=== PATIENT | male | born 1995 | race American Indian/Alaskan Native ===

== ENCOUNTER 2017-09-15 08:36 | Emergency (ER) | payer OTHER, MEDICAID, SELFPAY ==
[2017-09-15 08:44] VITALS: BP 141/62; PULSE 80; RESP 20; TEMP 36.4; O2SAT 96; BMI 52.0
--- NOTE | 2017-09-15 08:54 | PC.NURSE ---
Swelling stated to l foot. States took own lasix at home, as that what was given last time, but this did not help. Pain with palpation
--- NOTE | 2017-09-15 09:23 | DI.US.S_ITS ---
PROCEDURE: US PERIPH VENOUS LOW EXTREM LT INDICATIONS: EDEMA TECHNIQUE: Real-time imaging, as well as color and pulse Doppler interrogation, were performed of the lower extremity deep veins from the inguinal ligament to the popliteal fossa. COMPARISON: None. FINDINGS: The deep veins are normally compressible, and free of intraluminal thrombus. Color and pulse Doppler demonstrate normal phasic intraluminal flow. There is normal augmentation response to distal compression maneuver. IMPRESSION: No DVT in the left lower extremity. Dictated by: Jorge Jaramillo M.D. on 09/15/2017 at 9:52 Approved by: Jorge Jaramillo M.D. on 09/15/2017 at 9:52
--- NOTE | 2017-09-15 09:23 | ED.LOWEXIN ---
HPI - Extremity Injury (Lower) General Chief Complaint: Extremity Injury, Lower Stated Complaint: SWOLLEN LEFT FOOT Time Seen by Provider: 09/15/17 08:53 Source: patient Mode of arrival: ambulatory Limitations: no limitations History of Present Illness HPI Narrative: Patient states he started having pain and swelling in his left foot. It reaches somewhat of today his left ankle, as well patient states. Patient denies any direct trauma recently. He states he has been able to ambulate on the foot that hurts. Patient has no other injuries or complaints. He does know and old injury to the area some years ago. complaint: other Injury: Left: foot Place: home and street/outdoors Severity: moderate Severity scale (1-10): 5 Relieving factors: nothing Exacerbating factors: nothing Context: fall Other symptoms: none Related Data Previous Rx's Medication Instructions Recorded furosemide [Lasix] 20 mg PO QAM #7 tab 02/24/17 Allergies Allergy/AdvReac Type Severity Reaction Status Date / Time naproxen Allergy Unknown GETS Verified 09/15/17 08:43 ITCHY AND SWEATS Review of Systems Review of Systems All systems reviewed & are unremarkable except as noted in HPI and below Constitutional Denies chills, Denies fever(s), Denies lethargy and Denies weakness Eyes Denies change in vision, Denies eye discharge, Denies irritation and Denies loss of vision ENT Ears, Nose, Mouth, and Throat: Denies change in voice, Denies neck pain and Denies sore throat Cardiovascular Denies chest pain, Denies irregular heart rhythm, Denies lightheadedness, Denies palpitations, Denies dyspnea, Denies dyspnea on exertion and Denies orthopnea Respiratory Denies cough, Denies dyspnea, Denies dyspnea on exertion and Denies wheezing Gastrointestinal Gastrointestinal: Denies abdominal pain, Denies change in bowel habits, Denies diarrhea, Denies nausea and Denies vomiting Genitourinary Denies hematuria, Denies flank pain, Denies urinary incontinence and Denies urinary urgency Musculoskeletal Denies neck pain Integumentary/Breasts Denies pruritus, Denies erythema, Denies rash and Denies wounds Neurologic Denies confusion, Denies loss of vision and Denies weakness Psychiatric Denies anxiety, Denies confusion, Denies depression, Denies homicidal ideation and Denies suicidal ideation Endocrine Denies palpitations Hematologic/Lymphatic Denies easy bruising Allergic/Immunologic Denies wheezing PFSH Social History Smoking Status: Current every day smoker Exam Initial Vital Signs Initial Vital Signs: Vital Signs Temperature 97.5 F L 09/15/17 08:44 Pulse Rate 80 09/15/17 08:44 Respiratory Rate 20 09/15/17 08:44 Blood Pressure 141/62 H 09/15/17 08:44 Pulse Oximetry 96 09/15/17 08:44 Const General: cooperative and well developed Nutritional Appearance: well nourished Orientation: alert, awake, oriented x3 and not confused [facility] Head: normocephalic and atraumatic Nose: external nose normal and No nasal discharge Face and sinus: sinuses nontender, face symmetric, no sinus tenderness and No dry mucous membranes Mouth: oral mucosae normal and moist mucous membranes Teeth and gingiva: dentition normal Throat: tonsils normal and uvula midline Eyes General: appearance normal, both eyes and all related structures Eyelids: eyelids normal Conjunctivae: conjunctivae normal Sclera: sclerae normal Pupils: PERRL EOM: EOM intact bilaterally Neck Neck: normal visual inspection, trachea midline, No lymphadenopathy, No midline deformity and No JVD Lymphatic: No lymphedema Chest Chest: normal inspection of the chest Resp Effort & Inspection: normal respiratory effort, able to speak in complete sentences, no respiratory distress and no use of accessory muscles Auscultation: clear to auscultation bilaterally, no rales, no rhonchi and no wheezes Cardio Rate: regular rate Rhythm: regular rhythm Heart Sounds: no click, no gallops, no murmurs and no rubs Pulses: normal peripheral pulses GI Inspection: non-distended Palpation: soft, no hepatosplenomegaly, No guarding, No pulsatile mass and No tender Auscultation: normal bowel sounds Back/Spine/Pelvis Back: No CVA tenderness Cervical Spine: cervical ROM normal and No pain with cervical ROM Thoracic/Lumbar Spine: thoracic and lumbar spine normal to inspection Skin General: no rashes or lesions noted, No jaundice and No petechiae Neuro General: alert, oriented x3, gait normal and no focal motor deficits Speech: speech normal Extrem General: full ROM, no pedal edema, no calf tenderness and No edema Left lower extremity: ankle (mild tenderness L distal fibula) and foot (Mild tenderness over posterolateral foot. No deformity.) Psych Appearance: well kempt Mental Status: mental status grossly normal Attitude: cooperative Thought Content: normal and suicidality Judgment: judgment good Course Hospital Course: Patient was worked up with x-ray of the left ankle, which showed what appeared to be an old fracture with incomplete healing. This is consistent with the patient's statement of prior injury to the area. I did discuss the patient that this appears to be an old fracture; however, if it continues to bother him he should follow up with Orthopedics. We have also discussed that his significant obesity is likely a factor in the ongoing pain in the area, as well. Additional Information: The patient was also worked up with an ultrasound to look for DVT, and this is negative. Orders Ordered: Discontinued Medications Ibuprofen (Advil) 800 mg PO NOW ONE Stop: 09/15/17 09:27 Last Admin: 09/15/17 09:31 Dose: 800 mg Vital Signs - 8 hr 09/15/17 08:44 Temperature 97.5 F L Pulse Rate 80 Respiratory Rate 20 Blood Pressure 141/62 H Pulse Oximetry 96 MDM - Extremity Injury (Lower) Differential Diagnosis Likely ankle sprain and strain, ankle fracture and other Medical Records Attestation: I reviewed the patient's medical records. Lab Data Attestation: I reviewed the patient's lab results. Imaging Data xray: Attestation: I personally reviewed and interpreted this imaging study as follows: Radiologist's impression: [address] [address] XRay Report Signed Patient: Will Sharma TMR#: [id number] : 1995Acct:[id number] Age/Sex: 22 / MDate of Service: 09/15/17 Loc: ED Accession Number: [id number] Procedure: XR ankle LT min 3V Ordering Provider: Mariaa Gomes MD PROCEDURE: XR ANKLE LT MIN 3V INDICATIONS: pain/swelling TECHNIQUE: 3 views of the ankle were acquired. COMPARISON: None. FINDINGS: Bones: There is a vertical lucency in talus. A subtle lucency is noted in the lateral aspect of the tibia. No dislocations. Ankle mortise is normally aligned. No suspicious bony lesions. Soft tissues: No tibiotalar joint effusion. Achilles tendon appears normal. There is soft tissue swelling over the medial and lateral malleolus. IMPRESSION: 1. Vertical lucency in talus could represent a nondisplaced fracture if there is history of trauma. 2. Subtle lucency in the lateral aspect of the tibia may be incompletely fused epiphyseal plate, but nondisplaced fracture cannot be excluded. 3 Soft tissue swelling over lateral malleolus. Discharge Plan Departure Patient Disposition: Home Clinical Impression: Ankle pain, left Discharge Date/Time: 09/15/17 10:47 Interventions: ED Discharge Assessment Last Done: 09/15/17 10:46 Instructions: DI for Ankle Pain Activity Restrictions/Additional Instructions: Your x-ray shows a small area in your bone where it appears to have had a break, most likely in the past. This is probably related to old injury. However, since it keeps flaring up, you should follow-up with engineering documentation specialist to determine whether further options are available for treatment. You may take ibuprofen and Tylenol at home as needed. You may use ice as well, to help with the swelling. Prescriptions: No Action furosemide [Lasix] 20 MG tablet 20 mg PO QAM Qty: 7 RF: 0 Referrals: [facility] [Provider Group] (Follow-up for your healed fracture of the ankle.)
[2017-09-15] MEDS: IBUPROFEN 400 MG TABLET 800 MG PO (09:31)
--- NOTE | 2017-09-15 09:47 | PC.NURSE ---
XR and US done. Meds PO. to re eval
[2017-09-15 10:46] VITALS: BP 152/78; PULSE 68; RESP 20; O2SAT 100
--- NOTE | 2017-09-30 03:26 | ED_ITS ---
HPI - Extremity Injury (Lower) General Chief Complaint: Extremity Injury, Lower Stated Complaint: SWOLLEN LEFT FOOT Time Seen by Provider: 09/15/17 08:53 Source: patient Mode of arrival: ambulatory Limitations: no limitations History of Present Illness HPI Narrative: Patient states he started having pain and swelling in his left foot. It reaches somewhat of today his left ankle, as well patient states. Patient denies any direct trauma recently. He states he has been able to ambulate on the foot that hurts. Patient has no other injuries or complaints. He does know and old injury to the area some years ago. complaint: other Injury: Left: foot Place: home and street/outdoors Severity: moderate Severity scale (1-10): 5 Relieving factors: nothing Exacerbating factors: nothing Context: fall Other symptoms: none Related Data Previous Rx's Medication Instructions Recorded furosemide [Lasix] 20 mg PO QAM #7 tab 02/24/17 Allergies Allergy/AdvReac Type Severity Reaction Status Date / Time naproxen Allergy Unknown GETS Verified 09/15/17 08:43 ITCHY AND SWEATS Review of Systems Review of Systems All systems reviewed & are unremarkable except as noted in HPI and below Constitutional Denies chills, Denies fever(s), Denies lethargy and Denies weakness Eyes Denies change in vision, Denies eye discharge, Denies irritation and Denies loss of vision ENT Ears, Nose, Mouth, and Throat: Denies change in voice, Denies neck pain and Denies sore throat Cardiovascular Denies chest pain, Denies irregular heart rhythm, Denies lightheadedness, Denies palpitations, Denies dyspnea, Denies dyspnea on exertion and Denies orthopnea Respiratory Denies cough, Denies dyspnea, Denies dyspnea on exertion and Denies wheezing Gastrointestinal Gastrointestinal: Denies abdominal pain, Denies change in bowel habits, Denies diarrhea, Denies nausea and Denies vomiting Genitourinary Denies hematuria, Denies flank pain, Denies urinary incontinence and Denies urinary urgency Musculoskeletal Denies neck pain Integumentary/Breasts Denies pruritus, Denies erythema, Denies rash and Denies wounds Neurologic Denies confusion, Denies loss of vision and Denies weakness Psychiatric Denies anxiety, Denies confusion, Denies depression, Denies homicidal ideation and Denies suicidal ideation Endocrine Denies palpitations Hematologic/Lymphatic Denies easy bruising Allergic/Immunologic Denies wheezing PFSH Social History Smoking Status: Current every day smoker Exam Initial Vital Signs Initial Vital Signs: Vital Signs Temperature 97.5 F L 09/15/17 08:44 Pulse Rate 80 09/15/17 08:44 Respiratory Rate 20 09/15/17 08:44 Blood Pressure 141/62 H 09/15/17 08:44 Pulse Oximetry 96 09/15/17 08:44 Const General: cooperative and well developed Nutritional Appearance: well nourished Orientation: alert, awake, oriented x3 and not confused [facility] Head: normocephalic and atraumatic Nose: external nose normal and No nasal discharge Face and sinus: sinuses nontender, face symmetric, no sinus tenderness and No dry mucous membranes Mouth: oral mucosae normal and moist mucous membranes Teeth and gingiva: dentition normal Throat: tonsils normal and uvula midline Eyes General: appearance normal, both eyes and all related structures Eyelids: eyelids normal Conjunctivae: conjunctivae normal Sclera: sclerae normal Pupils: PERRL EOM: EOM intact bilaterally Neck Neck: normal visual inspection, trachea midline, No lymphadenopathy, No midline deformity and No JVD Lymphatic: No lymphedema Chest Chest: normal inspection of the chest Resp Effort & Inspection: normal respiratory effort, able to speak in complete sentences, no respiratory distress and no use of accessory muscles Auscultation: clear to auscultation bilaterally, no rales, no rhonchi and no wheezes Cardio Rate: regular rate Rhythm: regular rhythm Heart Sounds: no click, no gallops, no murmurs and no rubs Pulses: normal peripheral pulses GI Inspection: non-distended Palpation: soft, no hepatosplenomegaly, No guarding, No pulsatile mass and No tender Auscultation: normal bowel sounds Back/Spine/Pelvis Back: No CVA tenderness Cervical Spine: cervical ROM normal and No pain with cervical ROM Thoracic/Lumbar Spine: thoracic and lumbar spine normal to inspection Skin General: no rashes or lesions noted, No jaundice and No petechiae Neuro General: alert, oriented x3, gait normal and no focal motor deficits Speech: speech normal Extrem General: full ROM, no pedal edema, no calf tenderness and No edema Left lower extremity: ankle (mild tenderness L distal fibula) and foot (Mild tenderness over posterolateral foot. No deformity.) Psych Appearance: well kempt Mental Status: mental status grossly normal Attitude: cooperative Thought Content: normal and suicidality Judgment: judgment good Course Hospital Course: Patient was worked up with x-ray of the left ankle, which showed what appeared to be an old fracture with incomplete healing. This is consistent with the patient's statement of prior injury to the area. I did discuss the patient that this appears to be an old fracture; however, if it continues to bother him he should follow up with Orthopedics. We have also discussed that his significant obesity is likely a factor in the ongoing pain in the area, as well. Additional Information: The patient was also worked up with an ultrasound to look for DVT, and this is negative. Orders Ordered: Discontinued Medications Ibuprofen (Advil) 800 mg PO NOW ONE Stop: 09/15/17 09:27 Last Admin: 09/15/17 09:31 Dose: 800 mg Vital Signs - 8 hr 09/15/17 08:44 Temperature 97.5 F L Pulse Rate 80 Respiratory Rate 20 Blood Pressure 141/62 H Pulse Oximetry 96 MDM - Extremity Injury (Lower) Differential Diagnosis Likely ankle sprain and strain, ankle fracture and other Medical Records Attestation: I reviewed the patient's medical records. Lab Data Attestation: I reviewed the patient's lab results. Imaging Data xray: Attestation: I personally reviewed and interpreted this imaging study as follows: Radiologist's impression: [address] [address] XRay Report Signed Patient: Will Sharma TMR#: [id number] : 1995Acct:[id number] Age/Sex: 22 / MDate of Service: 09/15/17 Loc: ED Accession Number: [id number] Procedure: XR ankle LT min 3V Ordering Provider: Mariaa Gomes MD PROCEDURE: XR ANKLE LT MIN 3V INDICATIONS: pain/swelling TECHNIQUE: 3 views of the ankle were acquired. COMPARISON: None. FINDINGS: Bones: There is a vertical lucency in talus. A subtle lucency is noted in the lateral aspect of the tibia. No dislocations. Ankle mortise is normally aligned. No suspicious bony lesions. Soft tissues: No tibiotalar joint effusion. Achilles tendon appears normal. There is soft tissue swelling over the medial and lateral malleolus. IMPRESSION: 1. Vertical lucency in talus could represent a nondisplaced fracture if there is history of trauma. 2. Subtle lucency in the lateral aspect of the tibia may be incompletely fused epiphyseal plate, but nondisplaced fracture cannot be excluded. 3 Soft tissue swelling over lateral malleolus. Discharge Plan Departure Patient Disposition: Home Clinical Impression: Ankle pain, left Discharge Date/Time: 09/15/17 10:47 Interventions: ED Discharge Assessment Last Done: 09/15/17 10:46 Instructions: DI for Ankle Pain Activity Restrictions/Additional Instructions: Your x-ray shows a small area in your bone where it appears to have had a break , most likely in the past. This is probably related to old injury. However, since it keeps flaring up, you should follow-up with literacy specialist to determine whether further options are available for treatment. You may take ibuprofen and Tylenol at home as needed. You may use ice as well, to help with the swelling. Prescriptions: No Action furosemide [Lasix] 20 MG tablet 20 mg PO QAM Qty: 7 RF: 0 Referrals: [facility] [Provider Group] (Follow-up for your healed fracture of the ankle.)
== END 2017-09-15 10:47 | disposition home or self-care (01) ==
PROVIDERS: Emergency Provider Emergency Medicine
DX: M25.572 Pain in left ankle and joints of left foot (principal)
CPT/HCPCS: 73610; 93971; 99282; 99284

== ENCOUNTER 2017-09-22 18:37 | Emergency (ER) | payer OTHER, MEDICAID, SELFPAY ==
[2017-09-22 19:35] VITALS: BP 150/83; PULSE 82; RESP 20; TEMP 36.9; O2SAT 97
--- NOTE | 2017-09-22 19:35 | ED_ITS ---
HPI - Extremity Problem <Brandie Walker PA-C - Last Filed: 09/22/17 21:48> General Chief complaint: Extremity Injury, Lower Stated complaint: LEFT FOOT ON GOING PAIN Time Seen by Provider: 09/22/17 19:32 Source: patient and old records reviewed Mode of arrival: ambulatory Limitations: no limitations History of Present Illness HPI Narrative: This 22-year-old male returns to the ED with complaints of left foot and ankle area pain today. He was seen here 8 days ago due to pain and swelling. X-ray and ultrasound were done, no fracture or clot found. He states that after this, he actually had a fall onto that foot and ankle and was seen at another local ED. He states that he saw orthopedics and initially was told he had a fracture on x-ray but repeat x-ray was normal. He states that he saw orthopedics yesterday and not clear whether there was a fracture or gout present as he does have a history of gout. Blood work was done but he was not called with these results. He states that he was told to take ibuprofen and Tylenol for pain but that these are not helping. He denies any chest pain, dyspnea, or other complaints. He states that he has chronic intermittent edema in that leg since remote injury. Related Data Previous Rx's Medication Instructions Recorded furosemide [Lasix] 20 mg PO QAM #7 tab 02/24/17 Allergies Allergy/AdvReac Type Severity Reaction Status Date / Time naproxen Allergy Unknown GETS Verified 09/15/17 08:43 ITCHY AND SWEATS Review of Systems <Brandie Walker PA-C - Last Filed: 09/22/17 21:48> Review of Systems All systems reviewed & are unremarkable except as noted in HPI and below Exam <Brandie Walker PA-C - Last Filed: 09/22/17 21:48> Narrative Exam Narrative: GENERAL APPEARANCE: Patient sitting comfortably, in no distress. LUNGS: Clear to auscultation bilaterally. HEART: Rate and rhythm regular without murmur, normal S1 and S2, no S3 or S4. EXTREMITIES: No cyanosis, feet are warm, moderate pitting edema on the left, slightly less on the right MUSCULOSKELETAL: Tender over the left mid and inferior calf and inferior muller as well as just proximal to the ankle anteriorly. He has reduced a ROM of the left ankle secondary to tenderness, able to fully flex the knee and dorsi and plantar flex the toes. Achilles is intact by palpation Initial Vital Signs Initial Vital Signs: Vital Signs Temperature 98.5 F 09/22/17 19:35 Pulse Rate 82 09/22/17 19:35 Respiratory Rate 20 09/22/17 19:35 Blood Pressure 150/83 H 09/22/17 19:35 Pulse Oximetry 97 09/22/17 19:35 <Will Alejandro DO - Last Filed: 09/22/17 23:08> Initial Vital Signs Initial Vital Signs: Vital Signs Temperature 98.5 F 09/22/17 19:35 Pulse Rate 82 09/22/17 19:35 Respiratory Rate 20 09/22/17 19:35 Blood Pressure 150/83 H 09/22/17 19:35 Pulse Oximetry 97 09/22/17 19:35 Course <Brandie Walker PA-C - Last Filed: 09/22/17 21:48> Additional Information: I reviewed available radiology studies, workup done for DVT. Patient has had 3 x-rays and no fracture shown, but apparently when he saw orthopedics there was concern for occult fracture versus gout. He did not receive final word or lab results on this. Advised that he should continue current treatment, but try stopping ibuprofen and will try a dose of prednisone tonight. He will then get in touch with Orthopedics tomorrow to let them know progress and find out about lab results and next steps for workup. Patient's lab results were received just prior to discharge and he had an elevated uric acid with a level of 11.3. Reviewed this with him. He already felt that the prednisone was helping and will talk with podiatry tomorrow about his progress and whether to continue this. He agreed to discontinue ibuprofen tonight. Orders Ordered: Discontinued Medications Prednisone (Deltasone) 20 mg PO NOW ONE Stop: 09/22/17 20:24 Last Admin: 09/22/17 20:42 Dose: 20 mg Vital Signs - 8 hr 09/22/17 19:35 09/22/17 21:04 Temperature 98.5 F Pulse Rate 82 79 Respiratory Rate 20 21 Blood Pressure 150/83 H Blood Pressure [Left Arm] 125/85 H Pulse Oximetry 97 96 <Will Alejandro DO - Last Filed: 09/22/17 23:08> Orders Ordered: Discontinued Medications Prednisone (Deltasone) 20 mg PO NOW ONE Stop: 09/22/17 20:24 Last Admin: 09/22/17 20:42 Dose: 20 mg Vital Signs - 8 hr 09/22/17 19:35 09/22/17 21:04 Temperature 98.5 F Pulse Rate 82 79 Respiratory Rate 20 21 Blood Pressure 150/83 H Blood Pressure [Left Arm] 125/85 H Pulse Oximetry 97 96 Discharge Plan Departure Patient Disposition: Home Clinical Impression: Ankle pain, left Discharge Date/Time: 09/22/17 21:09 Interventions: ED Discharge Assessment Last Done: 09/22/17 21:09 Instructions: DI for Ankle Pain Activity Restrictions/Additional Instructions: It is not clear what the source of your current pain is. I reviewed the recent x-rays and ultrasound that you had and there was no clear fracture or blood clot , however it sounds like the foot/ankle specialist may have done or planned some additional studies to evaluate this further, or seen something else on x- rays done there. I agree that there is also possibility of atypical gout, so we have given you a dose of prednisone tonight to see if this is helpful. Please do not take additional ibuprofen tonight. Please contact Dr. Hoffman's office tomorrow morning to find out the results of your tests and further treatment plan. Let them know whether the prednisone helped you as well. Prescriptions: No Action furosemide [Lasix] 20 MG tablet 20 mg PO QAM Qty: 7 RF: 0 Referrals: Pete Kam DPM [Non-Staff] - <Will Alejandro DO - Last Filed: 09/22/17 23:08> Cosign ED Attending Suzette Attestation: I was available for consultation during this patient's emergency department encounter
[2017-09-22] MEDS: predniSONE 20 MG TABLET PO (20:42)
[2017-09-22 21:04] VITALS: BP 125/85; PULSE 79; RESP 21; O2SAT 96
== END 2017-09-22 21:09 | disposition home or self-care (01) ==
PROVIDERS: Emergency Provider Internal Medicine
DX: M79.672 Pain in left foot (principal)
CPT/HCPCS: 99282; 99283

== ENCOUNTER 2018-03-13 21:03 | Emergency (ER) | payer OTHER, MEDICAID, SELFPAY ==
[2018-03-13 21:07] VITALS: BP 149/91; PULSE 84; RESP 14; TEMP 36.4; O2SAT 97
== END 2018-03-13 22:23 | disposition left against medical advice (07) ==
DX: M54.2 Cervicalgia (principal)
CPT/HCPCS: 99281; 99282

== ENCOUNTER 2018-04-28 23:48 | Emergency (ER) | payer OTHER, MEDICAID, SELFPAY ==
[2018-04-29 00:02] VITALS: BP 156/94; PULSE 97; RESP 15; TEMP 37.1; O2SAT 96
--- NOTE | 2018-04-29 00:05 | DI.RAD.S_ITS ---
PROCEDURE: XR KNEE RT 3V INDICATIONS: Right knee pain after pop felt 2 days ago TECHNIQUE: 3 views of the knee were acquired. COMPARISON: None. FINDINGS: Bones: No fractures or dislocations. No suspicious bony lesions. Soft tissues: No joint effusion. No suspicious soft tissue calcifications. IMPRESSION: No fracture or dislocation. If clinical symptoms persist or clinical suspicion for pathology is high, a repeat examination in 7-10 days, or advanced imaging such as CT or MRI is suggested for further evaluation. No significant discrepancy with the ER preliminary interpretation. Dictated by: Jorge Jaramillo M.D. on 04/29/2018 at 9:40 Approved by: Jorge Jaramillo M.D. on 04/29/2018 at 9:44
--- NOTE | 2018-04-29 00:44 | ED.EXTPRO ---
HPI - Extremity Problem General Chief complaint: Extremity Problem,Nontraumatic Stated complaint: hurt right knee, cant move it. hurt right finger Time Seen by Provider: 04/29/18 00:44 Source: patient Mode of arrival: ambulatory Limitations: no limitations History of Present Illness HPI Narrative: Patient is here for evaluation of pain to the inside of his right knee. Patient states yesterday he was getting out of a car when he heard a pop and then started having pain in his right knee. He has never injured his knee in the past. Has not done anything for the symptoms prior to arrival. Is also here for evaluation of pain in his ring finger of his right hand. He states that he occasionally gets pain when he bends his finger that is unable to straighten it out until he strains and out with his left hand. Has a splint on this finger that he got from [employer]. Has not tried anything for symptoms prior to arrival. Related Data Previous Rx's Medication Instructions Recorded furosemide [Lasix] 20 mg PO QAM #7 tab 02/24/17 Allergies Allergy/AdvReac Type Severity Reaction Status Date / Time naproxen Allergy Unknown GETS Verified 04/29/18 00:02 ITCHY AND SWEATS Review of Systems Constitutional Denies fever(s) and Denies headache(s) ENT Ears, Nose, Mouth, and Throat: Denies headache(s) Cardiovascular Denies chest pain Gastrointestinal Gastrointestinal: Denies abdominal pain Musculoskeletal Denies tingling Comments: Right knee pain, right right finger pain Integumentary/Breasts Denies rash Neurologic Denies headache(s), Denies tingling and Denies paresthesias Hematologic/Lymphatic Denies easy bleeding and Denies easy bruising COUNT INCLUDES THE [facility] Social History Smoking Status: Current every day smoker Social History Smoking Status: Current every day smoker Exam Initial Vital Signs Initial Vital Signs: Vital Signs Temperature 98.7 F 04/29/18 00:02 Pulse Rate 97 H 04/29/18 00:02 Respiratory Rate 15 04/29/18 00:02 Blood Pressure 156/94 H 04/29/18 00:02 Pulse Oximetry 96 04/29/18 00:02 Const General: cooperative, healthy appearing, comfortable, well developed, well groomed and No acute distress Orientation: alert, awake and oriented x3 Resp Effort & Inspection: normal respiratory effort Cardio Rate: regular rate Pulses: radial pulses present on the right Skin Lesions: no lesions Rashes: no rashes Neuro General: alert, awake and oriented x3 Cognition: normal cognition Gait: normal gait Motor: muscle tone normal throughout Extrem Other: Patient with tenderness to palpation along the medial aspect of the right knee. ACL PCL MCL and LCL are all intact with functional testing. No hamstring tenderness. Patient able to flex and extend his right ring finger without problems. He does have tenderness to palpation over the MCP joint and he states this is where it feels like it ?get stuck? Psych Appearance: grossly normal and well kempt Procedures Orthopedic Splinting/Casting Injury #1: Side: right Lower Extremity Injury Location: knee Lower Extremity Immobilizer: Claudy wrap Post splinting neuro exam: intact and no change Post splinting vascular exam: no change Placed by: Nursing Course Orders Ordered: ED Orders 04/29/18 00:05 XR knee RT 3V Stat Vital Signs - 8 hr 04/29/18 00:02 Temperature 98.7 F Pulse Rate 97 H Respiratory Rate 15 Blood Pressure 156/94 H Pulse Oximetry 96 MDM - Extremity (Nontraumatic) Imaging Data X-ray right knee: Attestation: I personally reviewed and interpreted this imaging study as follows: My impression: No fractures, no dislocations MDM Narrative Medical decision making narrative: Patient is neurovascularly intact. I do suspect a meniscal injury in his right knee and a trigger finger of his right ring finger. We did discuss return precautions. He expressed understanding and agreement with plan. He will follow up with his primary doctor. Discharge Plan Departure Patient Disposition: Home Clinical Impression: Injury of knee, right Qualifiers: Encounter type: initial encounter Qualified Code(s): S89.91XA - Unspecified injury of right lower leg, initial encounter Trigger finger Qualifiers: Trigger finger location: unspecified finger Laterality: unspecified laterality Qualified Code(s): M65.30 - Trigger finger, unspecified finger Discharge Date/Time: 04/29/18 01:05 Interventions: ED Discharge Assessment Last Done: 04/29/18 01:05 Instructions: DI for Trigger Finger, DI for Knee Pain Activity Restrictions/Additional Instructions: I recommend that you use the Claudy bandage as needed for comfort. Contact your primary doctor on Tuesday for a follow-up. Return to the emergency department for any new or worsening symptoms Prescriptions: No Action furosemide [Lasix] 20 MG tablet 20 mg PO QAM Qty: 7 RF: 0
== END 2018-04-29 01:05 | disposition home or self-care (01) ==
PROVIDERS: Emergency Provider Emergency Medicine
DX: S89.91XA Unspecified injury of right lower leg, initial encounter (principal); M65.30 Trigger finger, unspecified finger
CPT/HCPCS: 73562; 99282; 99283

== ENCOUNTER 2020-01-07 12:50 | Emergency (ER) | payer OTHER, MEDICAID, SELFPAY ==
[2020-01-07 12:58] VITALS: BP 148/81; PULSE 57; RESP 18; TEMP 36.7; O2SAT 99
== END 2020-01-07 14:05 | disposition left against medical advice (07) ==
PROVIDERS: Emergency Provider Emergency Medicine; PCP Family Medicine
CPT/HCPCS: 99281

== ENCOUNTER 2020-01-14 14:33 | Emergency (ER) | payer OTHER, MEDICAID, SELFPAY ==
[2020-01-14 14:35] VITALS: BP 149/87; PULSE 86; RESP 16; TEMP 37.7; O2SAT 96; BMI 55.7
[2020-01-14 15:16] LABS: COVID19 -Nasal RAPID Negative (Negative)
--- NOTE | 2020-01-14 16:15 | DI.RAD.S_ITS ---
PROCEDURE: XR CHEST 1V INDICATIONS: flu-like symptoms TECHNIQUE: One view of the chest was acquired. COMPARISON: None. FINDINGS: Surgical changes and devices: None. Lungs and pleura: Lungs are clear. No pleural effusions or pneumothorax. Mediastinum: Mediastinal contours appear normal. Heart size is normal. Bones and chest wall: No suspicious bony lesions. Overlying soft tissues appear unremarkable. IMPRESSION: No acute cardiopulmonary disease process. Dictated by: Carmen Villa MD, PhD on 01/14/2020 at 16:26 Approved by: Carmen Villa MD, PhD on 01/14/2020 at 16:26
[2020-01-14] MEDS: ACETAMINOPHEN 325 MG TABLET 975 MG PO (16:53)
[2020-01-14] MEDS: KETOROLAC 60 MG/2 ML VIAL 30 MG IV (16:54)
[2020-01-14] MEDS: ONDANSETRON 4 MG/2 ML INJ IV (16:55)
[2020-01-14 17:17] LABS: Add Manual Diff / Slide Review NO; Basophils Absolute Auto 100 /uL (0-100); Basophils Percent Auto 0.4 % (0-2); Eosinophils Absolute Auto 0 /uL (0-450); Eosinophils Percent Auto 0.2 % (2-4); Hematocrit 44.5 % (41-53); Hemoglobin 14.8 g/dL (13.5-17.5); Lymphocytes Absolute Auto 1100 /uL (1100-4500); Lymphocytes Percent Auto 9.4 % (25-40); Mean Corpuscular HGB Conc 33.3 % (30-36); Mean Corpuscular Hemoglobin 28.4 PG (26-34); Mean Corpuscular Volume 85.3 fL (80-100); Monocytes Absolute Auto 1000 /uL (0-900); Monocytes Percent Auto 7.9 % (3-14); Neutrophils Absolute Auto 10100 /uL (1500-7000); Neutrophils Percent Auto 82.1 % (50-75); Platelet Count 202 X10^3/uL (150-400); Red Blood Cell Count 5.21 X10^6/uL (4.5-5.9); Red Cell Distribution Width 14.4 % (11.6-14.8); White Blood Cell Count 12.2 X10^3/uL (4.5-11.0)
[2020-01-14 17:22] LABS: Influenza A - CEPHEID Flu A NEGATIVE (NEGATIVE); Influenza B - CEPHEID Flu B NEGATIVE (NEGATIVE)
[2020-01-14 17:23] LABS: Alanine Aminotransferase 24 IU/L (<50); Albumin 4.3 g/dL (3.5-5.0); Albumin Globulin Ratio 1.4 (1.0-2.8); Alkaline Phosphatase 56 U/L (38-126); Aspartate Aminotransferase 20 IU/L (17-59); BUN Creatinine Ratio 15.9 (6-22); Bilirubin Total 0.9 mg/dL (0.2-1.3); Blood Urea Nitrogen 11 mg/dL (9-20); Calcium 9.1 mg/dL (8.4-10.2); Carbon Dioxide 30 mmol/L (22-32); Chloride 99 mmol/L (98-107); Estimated Glomerular Filt Rate > 60.0 mL/min (>60); Globulin 3.1 g/dL (1.7-4.1); Glucose 101 mg/dL (70-100); HEMOLYSIS < 15 (0-50); Potassium 4.2 mmol/L (3.4-5.1); Sodium 133 mmol/L (137-145); Total Protein 7.4 g/dL (6.3-8.2)
[2020-01-14 17:24] LABS: Magnesium 1.8 mg/dL (1.6-2.3)
[2020-01-14] MEDS: SODIUM CHLORIDE 0.9% 1,000 ML 1000 ML IV (17:33)
[2020-01-14 18:13] VITALS: PULSE 76; O2SAT 93
--- NOTE | 2020-01-14 18:42 | ED.FEVER ---
HPI - Fever <MINISTERIO Stern - Last Filed: 01/14/20 18:51> General Chief Complaint: Fever Stated Complaint: Cough, Fever, Sore Throat, Almost Passed Out Time Seen by Provider: 01/14/20 15:35 Source: patient Mode of arrival: Ambulatory Limitations: no limitations History of Present Illness HPI Narrative: The patient is a 24-year-old male current smoker with history of ankle pain who presents with a chief complaint of low-grade fevers, sore throat, decreased ability to eat due to sore throat, and cough. He states that his pain was so bad and he got weak that he almost passed out, but did not pass out. He complains of generalized aches and pains. No specific coronavirus exposure. Denies any nausea vomiting or diarrhea. Complains of decreased appetite related to sore throat. Has not taken anything for pain today. States he was using Aleve yesterday. Notes that he is allergic to naproxen but could do other NSAIDs. Denies any ear pain. States that his throat feels like swallowing glass. Related Data Previous Rx's Medication Instructions Recorded furosemide [Lasix] 20 mg PO QAM #7 tab 02/24/17 ketorolac 10 mg PO TID PRN #14 tab 01/14/20 ondansetron 4 mg PO Q6H PRN #14 tab 01/14/20 Allergies Allergy/AdvReac Type Severity Reaction Status Date / Time naproxen Allergy Unknown GETS Verified 04/29/18 00:02 ITCHY AND SWEATS Review of Systems <MINISTERIO Stern - Last Filed: 01/14/20 18:51> Review of Systems Narrative: GENERAL: See HPI HEENT: See HPI RESPIRATORY: See HPI CARDIOVASCULAR: Denies chest pain, palpitations, orthopnea, edema, GASTROINTESTINAL: Denies nausea, vomiting, abdominal pain, diarrhea, constipation, melena. : Denies dysuria, frequency, incontinence, hematuria, urinary retention. MUSCULOSKELETAL: denies weakness, joint pain, or bony pain SKIN: Denies rash, skin lesions, or other NEUROLOGIC: Denies weakness, headache, numbness, change in speech, confusion, seizures, incoordination. PSYCHIATRIC: No concerning psychosocial issues. 12 point review of systems is negative except for those stated above Patient History <MINISTERIO Stern - Last Filed: 12/07/20 18:51> Medical History (Updated 01/14/20 @ 18:50 by MINISTERIO Stern) Anxiety Chronic bilateral low back pain without sciatica (06/15/16) Chronic pain of both knees (06/15/16) Depression Gout attack History of frequent headaches Morbid obesity due to excess calories (06/15/16) Venous stasis Social History Smoking Status: Current every day smoker Smoking Status: Current every day smoker alcohol intake frequency: 0-2 drinks per day Substance Use Type: marijuana Exam <MINISTERIO Stern - Last Filed: 01/14/20 18:51> Narrative Exam Narrative: GENERAL: This is a well-nourished, well-developed patient, in no acute distress HEAD: Atraumatic. Normocephalic. No temporal or scalp tenderness. EYES: Pupils equal round and reactive. Extraocular motions intact. No scleral icterus. No injection or drainage. ENT: Nose without bleeding, purulent drainage or septal hematoma. Throat with erythema, but no tonsillar hypertrophy or exudate. Uvula midline. Airway patent. Bilateral TMs pearly larson. NECK: Trachea midline. No JVD or lymphadenopathy. Supple, nontender, no meningeal signs. CARDIOVASCULAR: Regular rate and rhythm RESPIRATORY: Clear to auscultation. Breath sounds equal bilaterally. No wheezes, rales, or rhonchi. No cough. No increased respiratory effort. No accessory muscle use. Speaking full sentences. GASTROINTESTINAL: Abdomen soft, non-tender, nondistended. No hepato-splenomegaly, or palpable masses. No guarding. Active bowel sounds all 4 quadrants EXTREMITIES: No clubbing, cyanosis, or edema. No joint tenderness, effusion, or edema noted. BACK: Nontender without deformity or crepitance. No flank tenderness. NEURO: AOx3. SKIN: No rash or erythema on visible skin Initial Vital Signs Initial Vital Signs: Vital Signs Temperature 99.8 F H 01/14/20 14:35 Pulse Rate 86 01/14/20 14:35 Respiratory Rate 16 01/14/20 14:35 Blood Pressure 149/87 H 01/14/20 14:35 Pulse Oximetry 96 01/14/20 14:35 <Arlene Hampton DO - Last Filed: 01/14/20 19:37> Initial Vital Signs Initial Vital Signs: Vital Signs Temperature 99.8 F H 01/14/20 14:35 Pulse Rate 86 01/14/20 14:35 Respiratory Rate 16 01/14/20 14:35 Blood Pressure 149/87 H 01/14/20 14:35 Pulse Oximetry 96 01/14/20 14:35 Scores <MINISTERIO Stern - Last Filed: 01/14/20 18:51> GCS Sergey coma scale eye opening: Spontaneous Sergey coma scale verbal response: Orientated Sergey coma scale motor response: Obey commands Sergey coma scale total score: 15 qSOFA Altered Mental Status (GCS <15): No Respiratory rate greater than/equal to 22: No Systolic blood pressure less than or equal to 100: No qSOFA Total: 0 0-1 Not High Risk 1-3 High risk Course <MINISTERIO Stern - Last Filed: 01/14/20 18:51> Orders Ordered: ED Orders 01/14/20 14:55 COVID19 Stat 01/14/20 16:15 XR chest 1V Stat 01/14/20 16:34 Influenza A & B (PCR) Stat Throat Culture Stat 01/14/20 17:06 Complete Blood Count AUTO DIFF Stat Comprehensive Metabolic Panel Stat Magnesium Stat Discontinued Medications Acetaminophen (Acetaminophen 325 Mg Tablet) 975 mg PO NOW ONE Stop: 01/14/20 16:17 Last Admin: 01/14/20 16:53 Dose: 975 mg Documented by: TANJA Sodium Chloride (Normal Saline 0.9%) 1,000 mls @ 1,000 mls/hr IV BOLUS ONE Stop: 01/14/20 17:59 Last Infusion: 01/14/20 18:55 Dose: 0 mls/hr Documented by: Admin: 01/14/20 17:33 Dose: 1,000 mls/hr Documented by: OBED Ketorolac Tromethamine (Ketorolac 60 Mg/2 Ml Vial) 30 mg IV NOW ONE Stop: 01/14/20 16:17 Last Admin: 01/14/20 16:54 Dose: 30 mg Documented by: TANJA Ondansetron HCl (Ondansetron 4 Mg/2 Ml Inj) 4 mg IV NOW ONE Stop: 01/14/20 16:17 Last Admin: 01/14/20 16:55 Dose: 4 mg Documented by: TANJA Vital Signs Vital signs: Vital Signs - 8 hr 01/14/20 14:35 01/14/20 18:13 Temperature 99.8 F H Pulse Rate 86 76 Respiratory Rate 16 Blood Pressure 149/87 H Pulse Oximetry 96 93 <Arlene Hampton DO - Last Filed: 01/14/20 19:37> Orders Ordered: ED Orders 01/14/20 14:55 COVID19 Stat 01/14/20 16:15 XR chest 1V Stat 01/14/20 16:34 Influenza A & B (PCR) Stat Throat Culture Stat 01/14/20 17:06 Complete Blood Count AUTO DIFF Stat Comprehensive Metabolic Panel Stat Magnesium Stat Discontinued Medications Acetaminophen (Acetaminophen 325 Mg Tablet) 975 mg PO NOW ONE Stop: 01/14/20 16:17 Last Admin: 01/14/20 16:53 Dose: 975 mg Documented by: TANJA Sodium Chloride (Normal Saline 0.9%) 1,000 mls @ 1,000 mls/hr IV BOLUS ONE Stop: 01/14/20 17:59 Last Infusion: 01/14/20 18:55 Dose: 0 mls/hr Documented by: Admin: 01/14/20 17:33 Dose: 1,000 mls/hr Documented by: OBED Ketorolac Tromethamine (Ketorolac 60 Mg/2 Ml Vial) 30 mg IV NOW ONE Stop: 01/14/20 16:17 Last Admin: 01/14/20 16:54 Dose: 30 mg Documented by: TANJA Ondansetron HCl (Ondansetron 4 Mg/2 Ml Inj) 4 mg IV NOW ONE Stop: 01/14/20 16:17 Last Admin: 01/14/20 16:55 Dose: 4 mg Documented by: TANJA Vital Signs Vital signs: Vital Signs - 8 hr 01/14/20 14:35 01/14/20 18:13 Temperature 99.8 F H Pulse Rate 86 76 Respiratory Rate 16 Blood Pressure 149/87 H Pulse Oximetry 96 93 MDM - Fever <MINISTERIO Stern - Last Filed: 01/14/20 18:51> Lab Data Result diagrams: 01/14/20 17:06 01/14/20 17:06 Labs: Lab Results 01/14/20 01/14/20 01/14/20 Range/Units 14:55 16:34 17:06 WBC (4.5-11.0) X10^3/uL RBC (4.5-5.9) X10^6/uL Hgb (13.5-17.5) g/dL Hct (41-53) % MCV (80-100) fL MCH (26-34) PG MCHC (30-36) % RDW (11.6-14.8) % Plt Count (150-400) X10^3/uL Neut % (Auto) (50-75) % Lymph % (Auto) (25-40) % [place] % (Auto) (3-14) % Eos % (Auto) (2-4) % Baso % (Auto) (0-2) % Neut # (Auto) (3185-8437) /uL Lymph # (Auto) (9799-0162) /uL [place] # (Auto) (0-900) /uL Eos # (Auto) (0-450) /uL Baso # (Auto) (0-100) /uL Sodium 133 L (137-145) mmol/L Potassium 4.2 (3.4-5.1) mmol/L Chloride 99 (98-107) mmol/L Carbon Dioxide 30 (22-32) mmol/L BUN 11 (9-20) mg/dL Creatinine 0.69 (0.66-1.25) mg/dL Estimated GFR > 60.0 (>60) mL/min BUN/Creatinine Ratio 15.9 (6-22) Glucose 101 H (70-100) mg/dL Calcium 9.1 (8.4-10.2) mg/dL Magnesium (1.6-2.3) mg/dL Total Bilirubin 0.9 (0.2-1.3) mg/dL AST 20 (17-59) IU/L ALT 24 (<50) IU/L Alkaline Phosphatase 56 (38-126) U/L Total Protein 7.4 (6.3-8.2) g/dL Albumin 4.3 (3.5-5.0) g/dL Globulin 3.1 (1.7-4.1) g/dL Albumin/Globulin Ratio 1.4 (1.0-2.8) COVID-19 PCR Negative (Negative) Influenza A (RT-PCR) Flu a negative (NEGATIVE) Influenza B (RT-PCR) Flu b negative (NEGATIVE) 01/14/20 01/14/20 Range/Units 17:06 17:06 WBC 12.2 H (4.5-11.0) X10^3/uL RBC 5.21 (4.5-5.9) X10^6/uL Hgb 14.8 (13.5-17.5) g/dL Hct 44.5 (41-53) % MCV 85.3 (80-100) fL MCH 28.4 (26-34) PG MCHC 33.3 (30-36) % RDW 14.4 (11.6-14.8) % Plt Count 202 (150-400) X10^3/uL Neut % (Auto) 82.1 H (50-75) % Lymph % (Auto) 9.4 L (25-40) % [place] % (Auto) 7.9 (3-14) % Eos % (Auto) 0.2 L (2-4) % Baso % (Auto) 0.4 (0-2) % Neut # (Auto) 48251 H (9346-9769) /uL Lymph # (Auto) 1100 (1911-5380) /uL [place] # (Auto) 1000 H (0-900) /uL Eos # (Auto) 0 (0-450) /uL Baso # (Auto) 100 (0-100) /uL Sodium (137-145) mmol/L Potassium (3.4-5.1) mmol/L Chloride (98-107) mmol/L Carbon Dioxide (22-32) mmol/L BUN (9-20) mg/dL Creatinine (0.66-1.25) mg/dL Estimated GFR (>60) mL/min BUN/Creatinine Ratio (6-22) Glucose (70-100) mg/dL Calcium (8.4-10.2) mg/dL Magnesium 1.8 (1.6-2.3) mg/dL Total Bilirubin (0.2-1.3) mg/dL AST (17-59) IU/L ALT (<50) IU/L Alkaline Phosphatase (38-126) U/L Total Protein (6.3-8.2) g/dL Albumin (3.5-5.0) g/dL Globulin (1.7-4.1) g/dL Albumin/Globulin Ratio (1.0-2.8) COVID-19 PCR (Negative) Influenza A (RT-PCR) (NEGATIVE) Influenza B (RT-PCR) (NEGATIVE) Point of Care Testing Rapid Strep A Negative Imaging Data Chest x-ray: Radiologist's Impression: [address] [place] [id number] ReportSigned Patient: Will Sharma TMR#: [id number]: [id number]:[id number]/Sex: 24 / MDate of Service: 01/14/20Loc: EDAccession Number: [id number] Procedure: XR chest 1V Ordering Provider: Arlene Henley-RANDELL PROCEDURE: XR CHEST 1V INDICATIONS: flu-like symptoms TECHNIQUE: One view of the chest was acquired. COMPARISON: None. FINDINGS: Surgical changes and devices: None. Lungs and pleura: Lungs are clear. No pleural effusions or pneumothorax. Mediastinum: Mediastinal contours appear normal. Heart size is normal. Bones and chest wall: No suspicious bony lesions. Overlying soft tissues appear unremarkable. IMPRESSION: No acute cardiopulmonary disease process. Dictated by: Carmen Villa MD, PhD on 01/14/2020 at 16:26 Approved by: Carmen Villa MD, PhD on 01/14/2020 at 16:26 [facility] Narrative Medical decision making narrative: The patient is a 24-year-old male who presents with a chief complaint of a cough, sore throat, low-grade fevers. She tests negative for coronavirus. I discussed with the patient that this could be test early in the disease process and that he needs to get re-evaluated if he continues to have any symptoms. He test negative for influenza. He has a negative rapid strep, throat culture is pending at this time. Chest x-ray is no acute findings. The patient feels much improved after IV fluids, acetaminophen and Toradol. Patient was able to tolerate po fluids prior to discharge. Prescriptions provided of Toradol and ondansetron. Encouraged follow-up with primary care provider in the next few days as well as come back to ER for acute concerns such as chest pain, significant shortness of breath, concern of heart attack stroke etcetera. Patient has no questions or concerns upon discharge and states understanding return precautions as well as follow-up care. <Arlene Joe Hampton, - Last Filed: 01/14/20 19:37> Lab Data Labs: Lab Results 01/14/20 01/14/20 01/14/20 Range/Units 14:55 16:34 17:06 WBC (4.5-11.0) X10^3/uL RBC (4.5-5.9) X10^6/uL Hgb (13.5-17.5) g/dL Hct (41-53) % MCV (80-100) fL MCH (26-34) PG MCHC (30-36) % RDW (11.6-14.8) % Plt Count (150-400) X10^3/uL Neut % (Auto) (50-75) % Lymph % (Auto) (25-40) % [place] % (Auto) (3-14) % Eos % (Auto) (2-4) % Baso % (Auto) (0-2) % Neut # (Auto) (3405-0800) /uL Lymph # (Auto) (9249-4165) /uL [place] # (Auto) (0-900) /uL Eos # (Auto) (0-450) /uL Baso # (Auto) (0-100) /uL Sodium 133 L (137-145) mmol/L Potassium 4.2 (3.4-5.1) mmol/L Chloride 99 (98-107) mmol/L Carbon Dioxide 30 (22-32) mmol/L BUN 11 (9-20) mg/dL Creatinine 0.69 (0.66-1.25) mg/dL Estimated GFR > 60.0 (>60) mL/min BUN/Creatinine Ratio 15.9 (6-22) Glucose 101 H (70-100) mg/dL Calcium 9.1 (8.4-10.2) mg/dL Magnesium (1.6-2.3) mg/dL Total Bilirubin 0.9 (0.2-1.3) mg/dL AST 20 (17-59) IU/L ALT 24 (<50) IU/L Alkaline Phosphatase 56 (38-126) U/L Total Protein 7.4 (6.3-8.2) g/dL Albumin 4.3 (3.5-5.0) g/dL Globulin 3.1 (1.7-4.1) g/dL Albumin/Globulin Ratio 1.4 (1.0-2.8) COVID-19 PCR Negative (Negative) Influenza A (RT-PCR) Flu a negative (NEGATIVE) Influenza B (RT-PCR) Flu b negative (NEGATIVE) 01/14/20 01/14/20 Range/Units 17:06 17:06 WBC 12.2 H (4.5-11.0) X10^3/uL RBC 5.21 (4.5-5.9) X10^6/uL Hgb 14.8 (13.5-17.5) g/dL Hct 44.5 (41-53) % MCV 85.3 (80-100) fL MCH 28.4 (26-34) PG MCHC 33.3 (30-36) % RDW 14.4 (11.6-14.8) % Plt Count 202 (150-400) X10^3/uL Neut % (Auto) 82.1 H (50-75) % Lymph % (Auto) 9.4 L (25-40) % [place] % (Auto) 7.9 (3-14) % Eos % (Auto) 0.2 L (2-4) % Baso % (Auto) 0.4 (0-2) % Neut # (Auto) 53358 H (7193-9265) /uL Lymph # (Auto) 1100 (5768-7783) /uL [place] # (Auto) 1000 H (0-900) /uL Eos # (Auto) 0 (0-450) /uL Baso # (Auto) 100 (0-100) /uL Sodium (137-145) mmol/L Potassium (3.4-5.1) mmol/L Chloride (98-107) mmol/L Carbon Dioxide (22-32) mmol/L BUN (9-20) mg/dL Creatinine (0.66-1.25) mg/dL Estimated GFR (>60) mL/min BUN/Creatinine Ratio (6-22) Glucose (70-100) mg/dL Calcium (8.4-10.2) mg/dL Magnesium 1.8 (1.6-2.3) mg/dL Total Bilirubin (0.2-1.3) mg/dL AST (17-59) IU/L ALT (<50) IU/L Alkaline Phosphatase (38-126) U/L Total Protein (6.3-8.2) g/dL Albumin (3.5-5.0) g/dL Globulin (1.7-4.1) g/dL Albumin/Globulin Ratio (1.0-2.8) COVID-19 PCR (Negative) Influenza A (RT-PCR) (NEGATIVE) Influenza B (RT-PCR) (NEGATIVE) Point of Care Testing Rapid Strep A Negative Discharge Plan Departure Patient Disposition: Home Clinical Impression: Viral syndrome Pharyngitis Qualifiers: Pharyngitis/tonsillitis etiology: unspecified etiology Qualified Code(s): J02.9 - Acute pharyngitis, unspecified Instructions: DI for Pharyngitis/Tonsillopharyngitis -- Adult, DI for Viral Syndrome, Can COVID-19 be prevented? Activity Restrictions/Additional Instructions: Thank you for trusting us with your care today. As discussed, your coronavirus test results negative. Your influenza test results negative in your rapid strep also resulted negative. Your throat cultures pending and we will call you if anything comes up on this. I sent 2 prescriptions to [facility] in [place], 1 for pain and 1 for nausea. I have given you a prescription of Toradol. This is an NSAID. Do not combine it with other NSAIDs such as Aleve or ibuprofen. I suggest taking it with some food, as it can irritate your stomach. Please follow-up with primary care provider in the next few days. Please come back to the emergency department for any acute concerns. This includes concern of chest pain, shortness of breath, concern of heart attack or stroke, inability keep down fluids. Prescriptions: New ketorolac 10 mg tablet 10 mg PO TID PRN (Reason: pain) Qty: 14 RF: 0 ondansetron 4 mg tablet,disintegrating 4 mg PO Q6H PRN (Reason: nausea and vomiting) Qty: 14 RF: 0 No Action furosemide [Lasix] 20 MG tablet 20 mg PO QAM Qty: 7 RF: 0 Referrals: Giselle Alberto MD [Primary Care Provider] - <Arlene Hampton DO - Last Filed: 01/14/20 19:37> Cosign ED Attending Cosignature Attestation: I was immediately available in the department for consultation. This documentation has been reviewed and I agree with assessment and plan. Supervised by Arlene Hampton, DO
== END 2020-01-14 18:59 | disposition home or self-care (01) ==
PROVIDERS: Emergency Medicine; Emergency Provider Nurse Practitioner Family; PCP Family Medicine
DX: B34.9 Viral infection, unspecified (principal); J02.9 Acute pharyngitis, unspecified; R05 Cough; R50.9 Fever, unspecified
CPT/HCPCS: 36415; 71045; 80053; 83735; 85025; 87070; 87077; 87147; 87502; 87635; 87880; 96361; 96374; 96375; 99283; 99284; J1885; J2405

== ENCOUNTER 2020-02-02 06:45 | Emergency (ER) | payer OTHER, MEDICAID, SELFPAY ==
--- NOTE | 2020-02-02 06:53 | ED.EXTPRO ---
HPI - Extremity Problem General Chief complaint: Extremity Injury, Lower Stated complaint: right knee pain Time Seen by Provider: 02/02/20 06:53 Source: patient and family Mode of arrival: Wheelchair Limitations: no limitations History of Present Illness HPI Narrative: 24-year-old male smoker presents with a chief complaint severe knee pain upon waking this morning. He denies any injury and states he went to bed in his normal state of health. He woke today complaining of severe pain in his knee in the absence of any injury. He denies any fever, chills nor nausea or vomiting. He did take any medicines prior to coming. He has some pain while at rest but it is significantly worse when he moves. MD Complaint: extremity pain Onset (ago): hour(s) Pain Consistency: constant Location: right Quality: burning and stabbing Radiation: none Relieving factors: rest Exacerbating factors: range of motion, weight bearing and walking Associated symptoms: denies other symptoms Related Data Previous Rx's Medication Instructions Recorded furosemide [Lasix] 20 mg PO QAM #7 tab 02/24/17 ketorolac 10 mg PO TID PRN #14 tab 01/14/20 ondansetron 4 mg PO Q6H PRN #14 tab 01/14/20 Allergies Allergy/AdvReac Type Severity Reaction Status Date / Time naproxen Allergy Unknown GETS Verified 04/29/18 00:02 ITCHY AND SWEATS Review of Systems Constitutional Constitutional: Denies chills, Denies fatigue, Denies fever(s), Denies frequent falls, Denies lethargy and Denies weakness Eyes Eyes: Denies change in vision, Denies eye discharge, Denies irritation and Denies loss of vision ENT Ears, Nose, Mouth, and Throat: Denies change in voice, Denies dizziness, Denies neck pain, Denies sore throat and Denies throat swelling Cardiovascular Cardiovascular: Denies chest pain, Denies irregular heart rhythm, Denies lightheadedness, Denies palpitations, Denies dyspnea, Denies dyspnea on exertion and Denies orthopnea Respiratory Respiratory: Denies cough, Denies dyspnea, Denies dyspnea on exertion and Denies wheezing Gastrointestinal Gastrointestinal: Denies abdominal pain, Denies change in bowel habits, Denies diarrhea, Denies nausea and Denies vomiting Musculoskeletal Musculoskeletal: Reports arthralgias, Denies neck pain and Denies numbness Integumentary/Breasts Skin/Breast: Denies pruritus, Denies erythema, Denies rash and Denies wounds Neurologic Neurologic: Denies behavioral changes, Denies confusion, Denies dizziness, Denies frequent falls, Denies loss of vision, Denies numbness and Denies weakness Psychiatric Psychiatric: Denies anxiety, Denies behavioral changes, Denies confusion, Denies depression, Denies homicidal ideation and Denies suicidal ideation Endocrine Endocrine: Denies fatigue, Denies flushing and Denies palpitations Hematologic/Lymphatic Hematologic/Lymphatic: Denies easy bruising Allergic/Immunologic Allergic/Immunologic: Denies urticaria, Denies throat swelling and Denies wheezing Patient History Medical History (Updated 02/02/20 @ 08:13 by Juanjo Burks DO) Anxiety Chronic bilateral low back pain without sciatica (06/15/16) Chronic pain of both knees (06/15/16) Depression Gout attack History of frequent headaches Morbid obesity due to excess calories (06/15/16) Venous stasis Social History Smoking Status: Current every day smoker Smoking Status: Current every day smoker alcohol intake frequency: 0-2 drinks per day Substance Use Type: marijuana Exam Narrative Exam Narrative: GENERAL: [24] year old patient appears stated age. Well-nourished, well-developed patient, in distress, rubbing his knee. HEAD: Atraumatic. Normocephalic. EYES: Pupils equal round and reactive. Extraocular motions intact. No scleral icterus. No injection or drainage. ENT: Nose without bleeding, purulent drainage. Throat without erythema, tonsillar hypertrophy or exudate. Airway patent. NECK: Trachea midline. Non tender CARDIOVASCULAR: Regular rate and rhythm without murmurs, gallops, or rubs. RESPIRATORY: Clear to auscultation. Breath sounds equal bilaterally. No wheezes, rales, or rhonchi. GASTROINTESTINAL: Abdomen soft, non-tender, nondistended. EXTREMITIES: No obvious effusion, erythema or point tenderness. NO obvious ligamentous instability. Exam is limited by patient body habitus BACK: Nontender without deformity or crepitance. No flank tenderness. NEURO: AOx3. SKIN: No rash or erythema of visible areas Initial Vital Signs Initial Vital Signs: Vital Signs Temperature 98.6 F 02/02/20 07:05 Pulse Rate 65 02/02/20 07:05 Respiratory Rate 17 02/02/20 07:05 Blood Pressure 148/83 H 02/02/20 07:05 Pulse Oximetry 98 02/02/20 07:05 Procedures Joint Aspiration Joint Asp./Inject. 1: Time Out Performed: Yes Side of body: right Joint Aspirated: knee Ultrasound Guidance: No Skin Prep: Chlorhexidine Local Anesthetic: bupivacaine 0.25% Needle Size Used: 22G Fluid Obtained: clear Total fluid obtained (mL): 30 Patient Tolerated Procedure: Well Complications: none Additional Comments: patient able to ambulate out of the ED on his own Course Orders Ordered: ED Orders 02/02/20 07:02 XR knee RT 3V Stat 02/02/20 08:05 Body Fluid Culture Stat Cell Count w Diff Body Fluid Stat Crystals Body Fluid - IN-HOUSE Stat Discontinued Medications Bupivacaine HCl (Bupivacaine 0.5% (Pf) Vial) 5 ml SUBCUT NOW ONE Stop: 02/02/20 07:52 Last Admin: 02/02/20 07:59 Dose: 5 ml Documented by: MIRIAM Colchicine (Colchicine 0.6 Mg Tablet) 1.2 mg PO NOW ONE Stop: 02/02/20 08:06 Last Admin: 02/02/20 08:34 Dose: 1.2 mg Documented by: MIRIAM Colchicine (Colchicine 0.6 Mg Tablet) 0.6 mg PO NOW ONE Stop: 02/02/20 08:14 Last Admin: 02/02/20 08:35 Dose: 0.6 mg Documented by: MIRIAM Ketorolac Tromethamine (Ketorolac 60 Mg/2 Ml Vial) 60 mg IM NOW ONE Stop: 02/02/20 07:04 Last Admin: 02/02/20 07:13 Dose: 60 mg Documented by: MIRIAM Reevaluation(s) Reevaluation #1: Significant improvement after above-stated therapies, patient ambulates on his own without of emergency department upon discharge Consultations Consultation #1: Discussed findings with Orthopedics including history, physical, x-ray and fluid results. We sure the opinion that this is unlikely to be septic arthritis and most consistent with a gouty arthritis. Vital Signs Vital signs: Vital Signs - 8 hr 02/02/20 07:05 02/02/20 07:54 02/02/20 07:56 Temperature 98.6 F Pulse Rate 65 73 72 Respiratory Rate 17 Blood Pressure 148/83 H 114/64 Pulse Oximetry 98 97 97 02/02/20 08:00 02/02/20 08:30 Temperature Pulse Rate 66 58 L Respiratory Rate Blood Pressure 128/71 119/59 L Pulse Oximetry 98 97 MDM - Extremity (Nontraumatic) Lab Data Labs: Lab Results 02/02/20 Range/Units 08:05 Fluid Color Yellow Fluid Appearance Slightly cloudy Fluid RBC 0 /uL Fld Tot Nucleated Cell 30218 /uL Fluid Polynuclear WBCs 93 % Fluid Mononuclear WBCs 8 % Fluid Eosinophils 0 % Fluid Other Cells 0 % Body Fluid Clot No clots present Imaging Data Extremity x-ray #1: Attestation: I personally reviewed and interpreted this imaging study as follows: My Impression: No fx or dislocation Radiologist's Impression: [address] [id number] ReportSigned Patient: Will Sharma TMR#: [id number]: [id number]:[id number]/Sex: 24 / MDate of Service: 02/02/20Loc: EDAccession Number: [id number] Procedure: XR knee RT 3V Ordering Provider: Juanjo Burks D.O. PROCEDURE: XR KNEE RT 3V INDICATIONS: severe knee pain, no known injury TECHNIQUE: Three views of the knee were acquired. [facility]. FINDINGS: Bones: No fractures or dislocations. No suspicious bony lesions. Soft tissues: Very small joint effusion. No suspicious soft tissue calcifications. IMPRESSION: Small joint effusion is nonspecific. No fractures are visible. Dictated by: Bianka Walter M.D. on 02/02/2020 at 8:03 Approved by: Bianka Walter M.D. on 02/02/2020 at 8:04 [facility] Narrative Medical decision making narrative: Knee pain and small effusion without injury. No significant erythema. Reassuring tap. Septic arthritis considered, but thought to be much more likely a case of gouty arthritis. Return precautions given, questions answered to his apparent satisfaction Discharge Plan Departure Patient Disposition: Home Clinical Impression: Acute gouty arthritis Instructions: DI for Gout Activity Restrictions/Additional Instructions: *You have been diagnosed with [right knee gouty arthritis] *What to do: *Take medications as directed *Follow up with your primary care provider in 2-3 days, call for an appointment. Let them know you were seen in the Emergency Department and that we ask that you be seen in follow up *Return to ER if you should have any new, worsening or concerning symptoms Prescriptions: No Action furosemide [Lasix] 20 MG tablet 20 mg PO QAM Qty: 7 RF: 0 ketorolac 10 mg tablet 10 mg PO TID PRN (Reason: pain) Qty: 14 RF: 0 ondansetron 4 mg tablet,disintegrating 4 mg PO Q6H PRN (Reason: nausea and vomiting) Qty: 14 RF: 0 Referrals: Giselle Alberto MD [Primary Care Provider] -
--- NOTE | 2020-02-02 07:02 | DI.RAD.S_ITS ---
PROCEDURE: XR KNEE RT 3V INDICATIONS: severe knee pain, no known injury TECHNIQUE: Three views of the knee were acquired. COMPARISON: [facility], [place], XR KNEE RT 3V, 04/29/2018, 0:12. FINDINGS: Bones: No fractures or dislocations. No suspicious bony lesions. Soft tissues: Very small joint effusion. No suspicious soft tissue calcifications. IMPRESSION: Small joint effusion is nonspecific. No fractures are visible. Dictated by: Bianka Walter M.D. on 02/02/2020 at 8:03 Approved by: Bianka Walter M.D. on 02/02/2020 at 8:04
[2020-02-02 07:05] VITALS: BP 148/83; PULSE 65; RESP 17; TEMP 37; O2SAT 98; BMI 48.8
[2020-02-02] MEDS: KETOROLAC 60 MG/2 ML VIAL IM (07:13)
[2020-02-02 07:54] VITALS: PULSE 73; O2SAT 97
[2020-02-02 07:56] VITALS: BP 114/64; PULSE 72; O2SAT 97
[2020-02-02] MEDS: BUPIVACAINE 0.5% (PF) VIAL 5 ML SUBCUT (07:59)
[2020-02-02 08:00] VITALS: BP 128/71; PULSE 66; O2SAT 98
[2020-02-02 08:30] VITALS: BP 119/59; PULSE 58; O2SAT 97
[2020-02-02] MEDS: COLCHICINE 0.6 MG TABLET 1.2 MG PO (08:34)
[2020-02-02] MEDS: COLCHICINE 0.6 MG TABLET PO (08:35)
[2020-02-02 08:49] LABS: Body Fluid Tot Nucleated Cells 12193 /uL
[2020-02-02 08:57] LABS: Body Fluid Red Blood Cells 0 /uL
[2020-02-02 08:58] LABS: Body Fluid Appearance SLIGHTLY CLOUDY; Body Fluid Clotted? NO CLOTS PRESENT; Body Fluid Color YELLOW; Eosinophils Body Fluid 0 %; Mononuclear WBC Body Fluid 8 %; Other Cells Body Fluid 0 %; Polynuclear WBC Body Fluid 93 %
[2020-02-02 14:21] LABS: Crystals Body Fluid - IN-HOUSE NONE Present
== END 2020-02-02 08:48 | disposition home or self-care (01) ==
PROVIDERS: Emergency Provider Emergency Medicine; PCP Family Medicine
DX: M10.9 Gout, unspecified (principal); M25.461 Effusion, right knee; E66.01 Morbid (severe) obesity due to excess calories; Z68.42 Body mass index [BMI] 45.0-49.9, adult
CPT/HCPCS: 73562; 87070; 87075; 87205; 89051; 89060; 96372; 99283; J1885

== ENCOUNTER 2020-08-10 22:15 | Emergency (ER) | payer OTHER, MEDICAID, SELFPAY ==
[2020-08-10 22:29] VITALS: BP 145/70; PULSE 74; RESP 16; TEMP 36.4; O2SAT 93; BMI 61.0
--- NOTE | 2020-08-11 00:30 | ED_ITS ---
HPI - Dental/Oral General Chief complaint: Dental/Oral Stated complaint: jaw pain Time Seen by Provider: 08/10/20 22:20 Source: patient Mode of arrival: Ambulatory History of Present Illness HPI Narrative: 25-year-old male smoker with frequent dental problems presents with a chief complaint of off and on right lower molar pain which has become bad over the past few days. He denies any fever or chills. He denies any trauma or injury. He denies any facial swelling or difficulty swallowing. Related Data Previous Rx's Medication Instructions Recorded furosemide 20 mg tablet (Lasix) 20 mg PO QAM #7 tab 02/24/17 ketorolac 10 mg tablet 10 mg PO TID PRN #14 tab 01/14/20 ondansetron 4 mg disintegrating 4 mg PO Q6H PRN #14 tab 01/14/20 tablet hydrocodone 5 mg-acetaminophen 325 1 tab PO Q4-6H PRN #10 tab 08/11/20 mg tablet Allergies Allergy/AdvReac Type Severity Reaction Status Date / Time naproxen Allergy Unknown GETS Verified 04/29/18 00:02 ITCHY AND SWEATS Review of Systems Review of Systems Narrative: GENERAL: Denies chills, fatigue, malaise, fever, sweats. HEENT: see HPI. RESPIRATORY: Denies dyspnea, cough, wheezing, hemoptysis, sputum. CARDIOVASCULAR: Denies chest pain, palpitations, orthopnea, edema, GASTROINTESTINAL: Denies nausea, vomiting, abdominal pain, diarrhea, constipation, melena. : Denies dysuria, frequency, incontinence, hematuria, urinary retention. MUSCULOSKELETAL: denies weakness, joint pain, or bony pain SKIN: Denies rash, skin lesions, or other NEUROLOGIC: Denies weakness, headache, numbness, change in speech, confusion, seizures, incoordination. PSYCHIATRIC: No concerning psychosocial issues. 12 point review of systems is negative except for those stated above Patient History Medical History (Updated 08/11/20 @ 00:51 by Juanjo Burks DO) Anxiety Chronic bilateral low back pain without sciatica (06/15/16) Chronic pain of both knees (06/15/16) Depression Gout attack History of frequent headaches Morbid obesity due to excess calories (06/15/16) Venous stasis Social History Smoking Status: Current every day smoker Smoking Status: Current every day smoker alcohol intake frequency: 0-2 drinks per day Substance Use Type: marijuana Exam Narrative Exam Narrative: GEN: AOx3 and in mild distress EYES: Pupils are equal, round, and reactive to light and accommodation. Extraoccular muscles are intact bilaterally. There is no subconjunctival hemorrhage or exudate. ENT: No facial swelling or intraoral swelling to suggest abscess, widespread poor dentition CHEST: Lungs are clear to auscultation bilaterally and free of wheezes, rales, or rhonchi. Heart rate is regular rhythm, there are no murmurs, clicks, rubs, or gallops. There is no chest wall tenderness. ABD: Abdomen is soft and nontender. There is no guarding or rebound. Bowel sounds are normal in all 4 quadrants. There is no mass or organomegaly. EXT: Full painless ROM of all extremities with no loss of sensation or strength. SKIN: Warm, pink, and dry. No erythema or rash Initial Vital Signs Initial Vital Signs: Vital Signs Temperature 97.6 F 08/10/20 22:29 Pulse Rate 74 08/10/20 22:29 Respiratory Rate 16 08/10/20 22:29 Blood Pressure 145/70 H 08/10/20 22:29 Pulse Oximetry 93 08/10/20 22:29 Course Orders Ordered: Discontinued Medications Hydrocodone Bitart/Acetaminophen (Hydrocodone/Acet 5/325 Prepack) 1 bottle MISC SEEINSTR ONE Stop: 08/11/20 00:50 Last Admin: 08/11/20 01:01 Dose: 1 bottle Documented by: ZACHARY Vital Signs Vital signs: Vital Signs - 8 hr 08/10/20 22:29 Temperature 97.6 F Pulse Rate 74 Respiratory Rate 16 Blood Pressure 145/70 H Pulse Oximetry 93 MDM - Dental/Oral MDM Narrative Medical decision making narrative: Patient has no evidence of infection and no antibiotics are indicated. He has no facial swelling or difficulty swallowing. Patient historically has trouble at the dentist when they attempt to numb him in it never works, we discussed a dental block but patient refused. Discharge Plan Departure Patient Disposition: Home Clinical Impression: Pain, dental Instructions: DI for Dental Pain Activity Restrictions/Additional Instructions: *You have been diagnosed with [dental pain] *What to do: *Please continue to take your regular medications as directed. [x ] New medication prescriptions sent to your pharmacy: [ ] [ ] New medication written as a paper prescription [ ] No new medications given *Please follow up with your primary care provider in 2-3 days, call for an appointment. Let them know you were seen in the Emergency Department and that we ask that you be seen in follow up. We will electronically transmit a record of today's note if your PCP is in our system *If you do not have a primary care provider please contact the [facility] Resource line at [phone]. They will ask some questions about your medical history and help get you set up with a doctor in the community. *Return to Emergency Department if you should have any new, worsening or concerning symptoms, such as [fever greater than 101 F, shaking chills, worsening pain, persistent vomiting or other bothersome symptoms] Prescriptions: New hydrocodone-acetaminophen 5-325 mg tablet 1 tab PO Q4-6H PRN (Reason: pain) Qty: 10 RF: 0 No Action furosemide [Lasix] 20 MG tablet 20 mg PO QAM Qty: 7 RF: 0 ketorolac 10 mg tablet 10 mg PO TID PRN (Reason: pain) Qty: 14 RF: 0 ondansetron 4 mg tablet,disintegrating 4 mg PO Q6H PRN (Reason: nausea and vomiting) Qty: 14 RF: 0 Referrals: Giselle Alberto MD [Primary Care Provider] -
[2020-08-11] MEDS: HYDROCODONE/ACET 5/325 PREPACK 1 BOTTLE MISC (01:01)
== END 2020-08-11 01:06 | disposition home or self-care (01) ==
PROVIDERS: Emergency Provider Emergency Medicine; PCP Family Medicine
DX: K08.89 Other specified disorders of teeth and supporting structures (principal)
CPT/HCPCS: 99281; 99283

== ENCOUNTER 2020-10-04 00:39 | Emergency (ER) | payer OTHER, MEDICAID, SELFPAY ==
[2020-10-04 00:52] VITALS: BP 187/105; PULSE 76; RESP 20; TEMP 36.6; O2SAT 98
--- NOTE | 2020-10-04 01:11 | ED.DENTAL ---
HPI - Dental/Oral General Chief complaint: Dental/Oral Stated complaint: tooth pain, wants a nerve block Time Seen by Provider: 10/04/20 00:46 History of Present Illness HPI Narrative: 25-year-old male smoker with history of gout and dental pain presents with a chief complaint of ongoing right lower dental pain which has been present for quite some time. He denies any fever or chills, intraoral drainage, facial swelling nor fever or chills. He denies any trauma. He states his tooth hurts worse with eating or drinking. He has seen his dentist and was given a lidocaine mouthwash which had been helping up until a day or 2 ago. He states he contacted them and they redirected him to the emergency department. Teeth map: 1. Related Data Previous Rx's Medication Instructions Recorded furosemide 20 mg tablet (Lasix) 20 mg PO QAM #7 tab 02/24/17 ketorolac 10 mg tablet 10 mg PO TID PRN #14 tab 01/14/20 ondansetron 4 mg disintegrating 4 mg PO Q6H PRN #14 tab 01/14/20 tablet hydrocodone 5 mg-acetaminophen 325 1 tab PO Q4-6H PRN #10 tab 08/11/20 mg tablet ketorolac 10 mg tablet 10 mg PO Q6H PRN #14 tab 10/04/20 Allergies Allergy/AdvReac Type Severity Reaction Status Date / Time naproxen Allergy Unknown GETS Verified 04/29/18 00:02 ITCHY AND SWEATS Review of Systems Review of Systems Narrative: GENERAL: Denies chills, fatigue, malaise, fever, sweats. HEENT: See HPI RESPIRATORY: Denies dyspnea, cough, wheezing, hemoptysis, sputum. CARDIOVASCULAR: Denies chest pain, palpitations, orthopnea, edema, GASTROINTESTINAL: Denies nausea, vomiting, abdominal pain, diarrhea, constipation, melena. : Denies dysuria, frequency, incontinence, hematuria, urinary retention. MUSCULOSKELETAL: denies weakness, joint pain, or bony pain SKIN: Denies rash, skin lesions, or other NEUROLOGIC: Denies weakness, headache, numbness, change in speech, confusion, seizures, incoordination. PSYCHIATRIC: No concerning psychosocial issues. 12 point review of systems is negative except for those stated above Patient History Medical History (Updated 10/04/20 @ 01:15 by Juanjo Burks DO) Anxiety Chronic bilateral low back pain without sciatica (06/15/16) Chronic pain of both knees (06/15/16) Depression Gout attack History of frequent headaches Morbid obesity due to excess calories (06/15/16) Venous stasis Social History Smoking Status: Current every day smoker Smoking Status: Current every day smoker alcohol intake frequency: 0-2 drinks per day Substance Use Type: marijuana Exam Narrative Exam Narrative: GEN: AOx3 and in mild distress EYES: Pupils are equal, round, and reactive to light and accommodation. Extraoccular muscles are intact bilaterally. There is no subconjunctival hemorrhage or exudate. ENT: No facial swelling, erythema, induration or fluctuance, no intraoral swelling, drainage or suggestion of abscess, no dental fracture, tooth 26 and 27 tender to palpate CHEST: Lungs are clear to auscultation bilaterally and free of wheezes, rales, or rhonchi. Heart rate is regular rhythm, there are no murmurs, clicks, rubs, or gallops. There is no chest wall tenderness. ABD: Abdomen is soft and nontender. There is no guarding or rebound. Bowel sounds are normal in all 4 quadrants. There is no mass or organomegaly. EXT: Full painless ROM of all extremities with no loss of sensation or strength. SKIN: Warm, pink, and dry. No erythema or rash Initial Vital Signs Initial Vital Signs: Vital Signs Temperature 98 F 10/04/20 00:52 Pulse Rate 76 10/04/20 00:52 Respiratory Rate 20 10/04/20 00:52 Blood Pressure 187/105 H 10/04/20 00:52 Pulse Oximetry 98 10/04/20 00:52 Procedures Nerve Block Nerve Block 1: Time out performed: Yes Local Anesthetic: bupivacaine 0.25% and with epi Amount of anesthesia used (mL): 4 Side: right Intraoral Nerve Block: inferior alveolar Procedure Successful: Yes Patient Tolerated Procedure: Well Complications: none Course Vital Signs Vital signs: Vital Signs - 8 hr 10/04/20 00:52 Temperature 98 F Pulse Rate 76 Respiratory Rate 20 Blood Pressure 187/105 H Pulse Oximetry 98 MDM - Dental/Oral MDM Narrative Medical decision making narrative: Patient tolerates procedure well. There is no sign of infection such as facial swelling or intraoral fluctuance or sign of abscess. Patient has an upcoming appointment with his dentist. Return precautions given and questions are answered to his apparent satisfaction Discharge Plan Departure Patient Disposition: Home Clinical Impression: Pain, dental Instructions: DI for Dental Pain Activity Restrictions/Additional Instructions: *You have been diagnosed with [dental pain without evidence of abscess] *What to do: *Please continue to take your regular medications as directed. [x ] New medication prescriptions sent to your pharmacy: [[facility] in [place] ] [ ] New medication written as a paper prescription [ ] No new medications given *Please follow up with your primary care provider in 2-3 days, call for an appointment. Let them know you were seen in the Emergency Department and that we ask that you be seen in follow up. We will electronically transmit a record of today's note if your PCP is in our system *If you do not have a primary care provider please contact the [facility] Resource line at [phone]. They will ask some questions about your medical history and help get you set up with a doctor in the community. *Return to Emergency Department if you should have any new, worsening or concerning symptoms, such as [fever greater than 101 F, shaking chills, worsening pain, persistent vomiting or other bothersome symptoms] Prescriptions: New ketorolac 10 mg tablet 10 mg PO Q6H PRN (Reason: pain) Qty: 14 RF: 0 No Action furosemide [Lasix] 20 MG tablet 20 mg PO QAM Qty: 7 RF: 0 hydrocodone-acetaminophen 5-325 mg tablet 1 tab PO Q4-6H PRN (Reason: pain) Qty: 10 RF: 0 ketorolac 10 mg tablet 10 mg PO TID PRN (Reason: pain) Qty: 14 RF: 0 ondansetron 4 mg tablet,disintegrating 4 mg PO Q6H PRN (Reason: nausea and vomiting) Qty: 14 RF: 0 Referrals: Giselle Alberto MD [Primary Care Provider] -
[2020-10-04] MEDS: LIDOCAINE 1% W/EPI 30 ML (01:28)
[2020-10-04 01:50] VITALS: BP 175/95; PULSE 76; RESP 18; O2SAT 98
== END 2020-10-04 01:52 | disposition home or self-care (01) ==
PROVIDERS: Emergency Provider Emergency Medicine; PCP Family Medicine
DX: K08.89 Other specified disorders of teeth and supporting structures (principal)
CPT/HCPCS: 64450; 99281; 99283

== ENCOUNTER 2020-12-20 23:03 | Emergency (ER) | payer OTHER, MEDICAID, SELFPAY ==
[2020-12-20 23:12] VITALS: BP 183/102; PULSE 82; RESP 18; TEMP 36.1; O2SAT 97; BMI 55.7
--- NOTE | 2020-12-20 23:22 | ED.DENTAL ---
HPI - Dental/Oral General Chief complaint: Dental/Oral Stated complaint: severe pain on right side of head Time Seen by Provider: 12/20/20 23:10 Source: patient Mode of arrival: Ambulatory Limitations: no limitations History of Present Illness HPI Narrative: Patient is a 25-year-old male with chronic ongoing dental issues presenting today with severe left upper dental pain. He says usually is on the right side but today is the left side. He says can usually be controlled with ibuprofen but it is not being controlled today. He is being seen by an oral surgeon to help with teeth extraction however because of his BMI of 55 high it is becoming challenging. He is not having any facial swelling no redness or fever. However because his pain is not controlled he is worried. Teeth map: 1. Pain no abscess. Chronic dental abnormality Related Data Previous Rx's Medication Instructions Recorded furosemide 20 mg tablet (Lasix) 20 mg PO QAM #7 tab 02/24/17 ketorolac 10 mg tablet 10 mg PO TID PRN #14 tab 01/14/20 ondansetron 4 mg disintegrating 4 mg PO Q6H PRN #14 tab 01/14/20 tablet hydrocodone 5 mg-acetaminophen 325 1 tab PO Q4-6H PRN #10 tab 08/11/20 mg tablet ketorolac 10 mg tablet 10 mg PO Q6H PRN #14 tab 10/04/20 amoxicillin 500 mg capsule 500 mg PO BID #14 cap 12/20/20 Allergies Allergy/AdvReac Type Severity Reaction Status Date / Time naproxen Allergy Unknown GETS Verified 04/29/18 00:02 ITCHY AND SWEATS Review of Systems Review of Systems Narrative: GENERAL: Denies chills,fever HEENT: See HPI RESPIRATORY: Denies dyspnea, cough, wheezing CARDIOVASCULAR: Denies chest pain, palpitations GASTROINTESTINAL: Denies nausea, vomiting MUSCULOSKELETAL: Denies extremity pain, injury SKIN: No rash, no laceration, no pruritus NEUROLOGIC: Denies weakness, dizziness, headache, numbness 8 point review of systems is negative except for those stated above and HPI Patient History Medical History (Updated 12/20/20 @ 23:36 by Natalia Traylor DO) Anxiety Chronic bilateral low back pain without sciatica (06/15/16) Chronic pain of both knees (06/15/16) Depression Gout attack History of frequent headaches Morbid obesity due to excess calories (06/15/16) Venous stasis Social History Smoking Status: Current every day smoker Smoking Status: Current every day smoker alcohol intake frequency: 0-2 drinks per day Substance Use Type: marijuana Exam Initial Vital Signs Initial Vital Signs: Vital Signs Temperature 97 F L 12/20/20 23:12 Pulse Rate 82 12/20/20 23:12 Respiratory Rate 18 12/20/20 23:12 Blood Pressure 183/102 H 12/20/20 23:12 Pulse Oximetry 97 12/20/20 23:12 GENERAL: Well-appearing 25-year-old male BMI 55 MOUTH: No dental abscess no facial swelling no trismus no erythema CARDIOVASCULAR: peripheral pulses in tact, cap refill <2 sec RESPIRATORY: No respiratory distress, speaks in full sentences without difficulty EXTREMITIES: Normal range of motion, no clubbing or edema. Neurovascularly intact NEUROLOGICAL: Cranial nerves II through XII grossly intact. Normal gait and speech. SKIN: Warm, dry, no petechiae, no rashes or lesions. Course Orders Ordered: Discontinued Medications Amoxicillin (Amoxicillin 250 Mg Prepack) [facility] Stop: 12/20/20 23:31 Last Admin: 12/20/20 23:43 Dose: 1 bottle Documented by: ZARIA Vital Signs Vital signs: Vital Signs - 8 hr 12/20/20 23:12 Temperature 97 F L Pulse Rate 82 Respiratory Rate 18 Blood Pressure 183/102 H Pulse Oximetry 97 MDM - Dental/Oral MDM Narrative Medical decision making narrative: The patient is offered a dental block however he declines at this time. Will start him on his antibiotics. He says typically pain is controlled ibuprofen and Tylenol however this time it is not starting him on antibiotics seems reasonable. He has follow-up as outpatient with Oral surgery Discharge Plan Departure Patient Disposition: Home Clinical Impression: Pain, dental Instructions: DI for Dental Pain Activity Restrictions/Additional Instructions: *You have been diagnosed with dental pain *What to do: Please follow-up with oral surgery *Continue to take medications as directed Ibuprofen 800 mg every 8 hours Amoxicillin 500 mg twice a day for 7 days *Follow up with your primary care provider in 2-3 days *Return to ER if you should have increasing pain redness swelling, or any new, worsening or concerning symptoms Prescriptions: New amoxicillin 500 mg capsule 500 mg PO BID Qty: 14 RF: 0 No Action furosemide [Lasix] 20 MG tablet 20 mg PO QAM Qty: 7 RF: 0 hydrocodone-acetaminophen 5-325 mg tablet 1 tab PO Q4-6H PRN (Reason: pain) Qty: 10 RF: 0 ketorolac 10 mg tablet 10 mg PO TID PRN (Reason: pain) Qty: 14 RF: 0 ondansetron 4 mg tablet,disintegrating 4 mg PO Q6H PRN (Reason: nausea and vomiting) Qty: 14 RF: 0 ketorolac 10 mg tablet 10 mg PO Q6H PRN (Reason: pain) Qty: 14 RF: 0 Referrals: Giselle Alberto MD [Primary Care Provider] -
[2020-12-20] MEDS: AMOXICILLIN 250 MG PREPACK 1 BOTTLE MISC (23:43)
== END 2020-12-21 00:01 | disposition home or self-care (01) ==
PROVIDERS: Emergency Provider Emergency Medicine; PCP Family Medicine
DX: K08.89 Other specified disorders of teeth and supporting structures (principal)
CPT/HCPCS: 99281